=== PATIENT | female | born 1990 | race Caucasian/White ===

== ENCOUNTER → 2018-02-02 | Outpatient (CLI) | payer BC ==
[~2018-02-02] MED LIST: CEFD300C3 PO; CLON1TAB27 PO
--- NOTE | 2018-02-02 19:48 | Diagnostic Imaging Report ---
INDICATION: Lower extremity swelling. COMPARISON: None. EXAMINATION: Focused ultrasound examination. FINDINGS: The soft tissues of the anterior foot demonstrate no acute abnormality. There is no fluid collection or mass. IMPRESSION: Negative limited ultrasound of the left foot. Dictated by: Dictated on workstation # [id number]
== END ==
LOC: RAD 18:48
PROVIDERS: ATTEND Nurse Practitioner Family
DX: M79.89 Other specified soft tissue disorders (principal)
CPT/HCPCS: 76881

== ENCOUNTER 2018-02-08 16:18 | Emergency (ER) | payer BC ==
[~2018-02-08] VITALS: Ht 167.6 cm; Wt 127.0 kg
[~2018-02-08 16:18] MED LIST changes: -CEFD300C3 PO
[2018-02-08 16:40] VITALS: BP 145/88
--- OUTSIDE RECORDS SUMMARY | 2018-02-08 16:49 | XMS REPORT ---
Author Author COLLINSSHARAD Cross Organization [facility] Address [address] [place] [address] Care Team Providers Care Process Control Operator Name Role Phone SHARAD COLLINS Unavailable PROBLEMS Unknown Problems ALLERGIES Substance Reaction Event Type Date Status Codeine ANGER Drug Allergy Jul, Active Depo-provera Contraceptive 150 Mg/ml Suspension Did not like it. Non Drug Allergy Jul, Active ENCOUNTERS Encounter Location Date Diagnosis [facility] [id number] [place] [address] 77165- 9094 Jul, Cough R05 ; URI, acute J06.9 and Nausea R11.0 [facility] [id number] [place] [address] 96299- 8677 Jun, Gastroenteritis K52.9 [facility] [address] [id number] Apr, Dental examination Z01.20 [facility] [address] [id number] Mar, Dental examination Z01.20 [facility] [address] [place] [address] 21594- 1524 May, [facility] [id number] [place] [address] 12691- 1113 Oct, [facility] [id number] [place] [address] 79066- 7534 Oct, [facility] [id number] [place] [address] 50498- 7972 Sep, [facility] [address] [place] [address] 24959- 0460 Sep, [facility] [id number] [place] [address] 4718 Apr, [facility] [address] [id number] [place] [address] 3807 Apr, [facility] [address] [id number] [place] [address] 2542 Apr, [facility] [address] [id number] [place] [address]- 7775 Apr, [facility] [address] [id number] [place] [address]- 9612 Apr, [facility] [address] [id number] [place] [address]- 2533 Apr, [facility] [address] [id number] [place] [address]- 8769 Mar, [facility] [address] [id number] [place] [address]- 1172 Mar, [facility] [address] [id number] [place] [address]- 2699 Feb, [facility] [address] [id number] [place] [address]- 6432 Oct, [facility] [address] [id number] [place] [address]- 2465 Oct, [facility] [address] [id number] [place] [address]- 4123 Aug, [facility] [address] [id number] [place] [address]- 1050 Jun, [facility] [address] [id number] [place] [address]- 1103 Jun, [facility] [address] [id number] [place] 12[address] Jun, [facility] [address] [id number] [place] [address]- 5359 Jun, [facility] [place] [facility] [address] [id number] [place] [address]- 7244 Jun, [facility] [place] [facility] [address] [id number] [place] [address]- 0416 Jun, [facility] [place] [facility] [address] [id number] [place] [address]- 1831 Jun, [facility] [place] [facility] [address] [id number] [place] [address]- 3971 Jun, [facility] [place] [facility] [address] [id number] [place] [address]- 5806 Jun, [facility] [place] [facility] [address] [id number] [place] [address]- 6515 Jun, [facility] [place] [facility] [address] [id number] [place] [address]- 4926 Jun, [facility] [place] [facility] [address] [id number] [place] [address]- 8472 Jun, [facility] [place] [facility] [address] [id number] [place] [address]- 0785 Jun, [facility] [place] [facility] [address] [id number], [place] [address]- 7203 Jun, [facility] [place] [facility] [address] [id number], [place] [address]- 4855 Apr, [facility] [place] [facility] [address] [id number], [place] [address]- 7188 Mar, [facility] [place] [facility] [address] [id number] [place] [address]- 7370 05 Mar, 2012 [facility] [place] [facility] [address] [id number], [place] [address]- 1180 04 Mar, 2012 [facility] [place] [facility] [address] [id number], [place] [address]- 7096 Feb, [facility] [place] [facility] [address] [id number], [place] [address]- 2546 Feb, [facility] [address] [address]- 2546 Jan, [facility] [address], [place] [address]- 2546 Jan, [facility] [address], [place] [address]- 2546 November, [facility] [address], [place] [address]- 2546 November, [facility] [address] [place] [address] 91547- 2546 Oct, [facility] [id number] [address]- 2546 Sep, [facility] [address] [place] [address] 87029- 2546 Sep, [facility] [address], [place] [address]- 2546 Aug, [facility] [address], [place] [address]- 2546 Aug, [facility] [address] [address]- 2546 Aug, [facility] [address], [place] [address]- 2546 Jul, [facility] [address] [id number] [address]- 2546 Jun, [facility] [address] [id number] [address]- 2546 May, IMMUNIZATIONS No Known Immunizations SOCIAL HISTORY Never Assessed REASON FOR VISIT Congestion-tjanssenMA, -3-4 days with congestion, stuffy nose, cough, fever for the last few days. , -c/o being nausous yesterday and this AM. PLAN OF CARE Activity Details Follow Up prn Reason: VITAL SIGNS Height 66 in 2017-07-26 Weight 258.9 lbs 2017-07-26 Temperature 97.8 degrees Fahrenheit 2017-07-26 Heart Rate 80 bpm 2017-07-26 Respiratory Rate 20 2017-07-26 BMI 41.78 kg/m2 2017-07-26 Blood pressure systolic 132 mmHg 2017-07-26 Blood pressure diastolic 78 mmHg 2017-07-26 MEDICATIONS Medication Instructions Dosage Frequency Start Date End Date Duration Status Alprazolam Not-Taking Suboxone 12-3 MG 1 Film by Sublingual route 2 times per day Mar, Active Topamax 25 mg 2 tablet by Oral route 2 times per day for 30 day(s) Jul, Active Venlafaxine HCl Active Neurontin 300 mg 1 capsule by Oral route 3 times per day Apr, Not-Taking Prozac 20 mg 1 Tablet by Oral route 1 time per day Mar, Not-Taking Gabapentin Active Ondansetron 4 MG Orally every 8 hrs 1 tablet on the tongue and allow to dissolve 8h Jul, 05 days Active Omeprazole Not-Taking BusPIRone HCl Not-Taking ProAir HFA 108 (90 Base) MCG/ACT Inhalation every 6 hrs if needed 2 puffs as needed Jul, 10 days Active Atenolol by Oral route Jul, Not-Taking Topiramate 25 mg 1 po tid Mar, Not-Taking RESULTS Name Result Date Reference Range INFLUENZA A & B (IN HOUSE) 2017-07-26 INFLUENZA A Negative INFLUENZA B Negative Control + Lot # [id number] Exp date 11/2019 PROCEDURES Procedure Date Ordered Result Body Site INFLUENZA ASSAY W/OPTIC Jul 26, 2017 INSTRUCTIONS MEDICATIONS ADMINISTERED No Known Medications MEDICAL (GENERAL) HISTORY Type Description Date Medical History Drug over dose, attempted suicide in 2011 Medical History high blood pressure Hospitalization History ICU for drug overdose 2012 Hospitalization History [facility] hospital after drug overdose 2012
--- OUTSIDE RECORDS SUMMARY | 2018-02-08 16:50 | XMS REPORT ---
Author Author ELSIFRANCISCO BUSTAMANTE [facility] Address Unknown Care Team Providers Care Metalsmith Name Role Phone FRANCISCO SHETTY Unavailable PROBLEMS Unknown Problems ALLERGIES Substance Reaction Event Type Date Status Codeine ANGER Drug Allergy Mar, Active Depo-provera Contraceptive 150 Mg/ml Suspension Did not like it. Non Drug Allergy Mar, Active ENCOUNTERS Encounter Location Date Diagnosis [facility] [address] [address]- [address] Jul, Cough R05 ; URI, acute J06.9 and Nausea R11.0 [facility] [address] [address]1002- 9564 Jun, Gastroenteritis K52.9 [facility] [address] [id number] Apr, Dental examination Z01.20 [facility] [address] [id number] Mar, Dental examination Z01.20 [facility] [id number] [place] [address] 74045- 1650 May, [facility] [id number] [place] [address] 48479- 2831 Oct, [facility] [address] 64217- 3107 Oct, [facility] [address] 33191- 4812 Sep, [facility] [address] 71884- 6288 Sep, [facility] [address] 94722- 0824 17 Apr, 2013 [facility] [place] [facility] [address] [id number] [place] [address]- 8748 17 Apr, 2013 [facility] [place] [facility] [address] [id number] [place] [address]- 3796 Apr, [facility] [place] [facility] [address] [id number] [place] [address]- 5381 Apr, [facility] [place] [facility] [address] [id number] [place] [address]- 0720 Apr, [facility] [place] [facility] [address] [id number] [place] [address]- 3961 Apr, [facility] [place] [facility] [address] [id number] [place] [address]- 9114 Mar, [facility] [place] [facility] [address] [id number] [place] [address]- 9523 Mar, [facility] [place] [facility] [address] [id number] [address]- 0766 Feb, [facility] [place] [facility] [address] [id number] [place] [address]- 7088 Oct, [facility] [place] [facility] [address] [id number] [place] [address]- 0306 Oct, [facility] [place] [facility] [address] [id number][place] [address]- 3130 Aug, [facility] [place] [facility] [address] [id number][place] [address]- 7033 Jun, [facility] [place] [facility] [address] [id number] [place] [address]- 0140 Jun, [facility] [place] [facility] [address] [id number] [place] [address]- 3897 Jun, [facility] [place] [facility] [address] [id number] [address]- 3068 Jun, [facility] [place] [facility] [address] [id number] [place] [address]- 5887 13 Jun, 2012 [facility] [address] [id number] [place] [address]- 4183 13 Jun, 2012 [facility] [address] [id number] [place] [address]- 0686 Jun, [facility] [address] [id number] [place] [address]- 0493 Jun, [facility] [address] [id number] [place] [address]- 5789 Jun, [facility] [address] [id number] [place] [address]- 0982 Jun, [facility] [address] [id number] [place] [address]- 7965 Jun, [facility] [address] [id number] [place] [address]- 3462 Jun, [facility] [address] [id number] [place] [address]- 2434 Jun, [facility] [address] [id number] [place] [address]- 5926 Jun, [facility] [address] [facility] [id number] [place] [address]- 4715 Apr, [facility] [place] [facility] [address] [id number] [place] [address]- 3128 22 Mar, 2012 [facility] [address] [id number] [place] [address]- 5575 05 Mar, 2012 [facility] [place] [facility] [address] [id number] [place] [address]- 7173 04 Mar, 2012 [facility] [place] [facility] [address] [id number] [place] [address]- 9967 24 Feb, 2012 [facility] [place] [facility] [address] [id number] [place] [address]- 9803 Feb, [facility] [address] [id number] [address]- 4886 Jan, [facility] [address] [address]- 2546 Jan, [facility] [address] [id number] [address]- 5556 November, [facility] [address] [address]- 2546 November, [facility] [address] [address]- 2486 Oct, [facility] [address] [place] [address] 43205- 5126 Sep, [facility] [id number] [place] [address] 65051- 0866 Sep, [facility] [address] [place] [address] 97328- 1716 Aug, [facility] [address] [address]- 4926 Aug, [facility] [address] [address]- 9966 Aug, [facility] [address], [place] [address]- 9136 Jul, [facility] [address] [address]- 2546 Jun, [facility] [address] [id number] [address]- 3346 May, IMMUNIZATIONS No Known Immunizations SOCIAL HISTORY Never Assessed REASON FOR VISIT NICOLLE-WALK IN PLAN OF CARE Activity Details Follow Up prn Reason:Filling #30, OB VITAL SIGNS Height 66 in 2017-04-12 Blood pressure systolic 117 mmHg 2017-04-12 Blood pressure diastolic 76 mmHg 2017-04-12 MEDICATIONS Medication Instructions Dosage Frequency Start Date End Date Duration Status Omeprazole Active Alprazolam Active Venlafaxine HCl Active Suboxone 12-3 MG 1 Film by Sublingual route 2 times per day Mar, Active Gabapentin Active Topamax 25 mg 2 tablet by Oral route 2 times per day for 30 day(s) Jul, Active BusPIRone HCl Active RESULTS No Results PROCEDURES Procedure Date Ordered Result Body Site LTD ORAL EVALUATION - PROBLEM FOCUS Apr 12, 2017 INTRAORL-PERIAPICAL 1 FILM [id number] Apr 12, 2017 BITEWING - SINGLE FILM Apr 12, 2017 INSTRUCTIONS MEDICATIONS ADMINISTERED No Known Medications MEDICAL (GENERAL) HISTORY Type Description Date Medical History Drug over dose, attempted suicide in 2011 Medical History high blood pressure Hospitalization History ICU for drug overdose 2012 Hospitalization History Psychiatric hospital after drug overdose 2012
--- OUTSIDE RECORDS SUMMARY | 2018-02-08 16:50 | XMS REPORT ---
Author Author FLORA VERDUGO Organization [facility] Address [address] [place] [address] Care Team Providers Care Tree Specialist Name Role Phone FLORA VERDUGO Unavailable PROBLEMS Unknown Problems ALLERGIES Substance Reaction Event Type Date Status Codeine ANGER Drug Allergy Jun, Active Depo-provera Contraceptive 150 Mg/ml Suspension Did not like it. Non Drug Allergy Jun, Active ENCOUNTERS Encounter Location Date Diagnosis [facility] [id number] [place] [address] 81788- 1802 Jul, Cough R05 ; URI, acute J06.9 and Nausea R11.0 [facility] [id number] [place] [address] 05385- 6588 Jun, Gastroenteritis K52.9 [facility] [address] [id number] Apr, Dental examination Z01.20 [facility] [address] [id number] Mar, Dental examination Z01.20 [facility] [id number] [place] [address] 48527- 0183 May, [facility] [id number] [place] [address] 16621- 6632 Oct, [facility] [id number] [place] [address] 78609- 2764 Oct, [facility] [id number] [place] [address] 49405- 8377 Sep, [facility] [id number] [place] [address] 02741- 6817 Sep, [facility] [address] [id number] [place] [address]- 7031 Apr, [facility] [address] [id number] [place] [address]- 0802 Apr, [facility] [address] [id number] [place] [address] 2548 Apr, [facility] [address] [id number] [place] [address]- 7268 Apr, [facility] [address] [id number] [place] [address]- 8980 Apr, [facility] [address] [id number] [place] [address]- 0949 Apr, [facility] [address] [id number] [place] [address]- 6096 Mar, [facility] [address] [id number] [place] [address]- 6980 Mar, [facility] [address] [id number] [place] [address]- 0090 Feb, [facility] [address] [id number] [place] [address]- 1059 Oct, [facility] [address] [id number] [place] [address]- 8192 Oct, [facility] [address] [id number] [place] [address]- 1448 Aug, [facility] [address] [id number] [place] [address]- 7899 Jun, [facility] [address] [id number] [place] [address]- 9428 Jun, [facility] [address] [id number] [place] 8705 Jun, [facility] [address] [id number] [place] [address]- 5904 Jun, [facility] [place] [facility] [address] [id number] [place] [address]- 3595 Jun, [facility] [place] [facility] [address] [id number] [place] [address]- 2446 Jun, [facility] [place] [facility] [address] [id number] [place] [address]- 7494 Jun, [facility] [place] [facility] [address] [id number] [place] [address]- 9454 Jun, [facility] [place] [facility] [address] [id number] [place] [address]- 2610 Jun, [facility] [place] [facility] [address] [id number] [place] [address]- 0257 Jun, [facility] [place] [facility] [address] [id number] [place] [address]- 7081 Jun, [facility] [place] [facility] [address] [id number] [place] [address]- 0228 Jun, [facility] [place] [facility] [address] [id number] [place] [address]- 8708 Jun, [facility] [place] [facility] [address] [id number], [place] [address]- 1337 Jun, [facility] [place] [facility] [address] [id number], [place] [address]- 0328 Apr, [facility] [place] [facility] [address] [id number], [place] [address]- 5688 Mar, [facility] [place] [facility] [address] [id number] [place] [address]- 7321 05 Mar, 2012 [facility] [place] [facility] [address] [id number], [place] [address]- 6358 04 Mar, 2012 [facility] [place] [facility] [address] [id number], [place] [address]- 8930 Feb, [facility] [place] [facility] [address] [id number], [place] [address] 2546 Feb, [facility] [address], [place] [address]- 6806 Jan, [facility] [address], [place] [address]- 2546 Jan, [facility] [address], [place] [address]- 2546 November, [facility] [address] [id number], [place] [address]- 2546 November, [facility] [id number] [place] [address] 65927- 4016 Oct, [facility] [address] [id number], [place] [address]- 2546 Sep, [facility] [id number] [place] [address] 16813- 6676 Sep, [facility] [address], [place] [address]- 9166 Aug, [facility] [address], [place] [address]- 5806 Aug, [facility] [id number] [address] Aug, [facility] [id number] [address] Jul, [facility] [id number] [address] Jun, [facility] [id number] [address] May, IMMUNIZATIONS No Known Immunizations SOCIAL HISTORY Never Assessed REASON FOR VISIT Vomiting / dizziness--Ye Moyer MA PLAN OF CARE Activity Details Follow Up prn Reason: VITAL SIGNS Height 66 in 2017-06-25 Weight 261.6 lbs 2017-06-25 Temperature 97.9 degrees Fahrenheit 2017-06-25 Heart Rate 76 bpm 2017-06-25 Respiratory Rate 20 2017-06-25 BMI 42.22 kg/m2 2017-06-25 Blood pressure systolic 118 mmHg 2017-06-25 Blood pressure diastolic 76 mmHg 2017-06-25 MEDICATIONS Medication Instructions Dosage Frequency Start Date End Date Duration Status Gabapentin Active Suboxone 12-3 MG 1 Film by Sublingual route 2 times per day Mar, Active Venlafaxine HCl Active Topiramate 25 mg 1 po tid Mar, Not-Taking Topamax 25 mg 2 tablet by Oral route 2 times per day for 30 day(s) Jul, Active Omeprazole Not-Taking Atenolol by Oral route Jul, Not-Taking Neurontin 300 mg 1 capsule by Oral route 3 times per day Apr, Not-Taking Alprazolam Not-Taking Prozac 20 mg 1 Tablet by Oral route 1 time per day Mar, Not-Taking BusPIRone HCl Not-Taking RESULTS No Results PROCEDURES No Known procedures INSTRUCTIONS MEDICATIONS ADMINISTERED No Known Medications MEDICAL (GENERAL) HISTORY Type Description Date Medical History Drug over dose, attempted suicide in 2011 Medical History high blood pressure Hospitalization History ICU for drug overdose 2012 [facility]
[2018-02-08 16:52] LABS: BILIRUBIN,URINE NEGATIVE (NEGATIVE); CLARITY,URINE CLEAR; COLOR,URINE YELLOW; GLUCOSE, URINE (UA) NEGATIVE (NEGATIVE); KETONES,URINE NEGATIVE (NEGATIVE); LEUKOCYTE ESTERASE ,URINE NEGATIVE (NEGATIVE); NITRITE,URINE NEGATIVE (NEGATIVE); PH,URINE 5 (5-9); PROTEIN,URINE NEGATIVE (NEGATIVE); UROBILINOGEN,URINE 1 MG/DL (NORMAL)
[2018-02-08] MEDS ORDERED: KETOROLAC 30 MG/ML VIAL IVP ONE (17:00)
[2018-02-08] MEDS ORDERED: NS IV 1000 ML 1,000 ML IV SCH (17:00)
--- NOTE | 2018-02-08 17:00 | ED Lower Extremity ---
General Chief Complaint: Lower Extremity Stated Complaint: L FOOT/LEG REDNESS/SWELLING Source: patient Exam Limitations: no limitations History of Present Illness Date Seen by Provider: Feb 08, 2018 Time Seen by Provider: 16:54 Initial Comments to ER with redness and swelling of the left lower extremity. This began 5 days ago with only swelling to the dorsal aspect of the left foot. No wounds that she noticed and no cause that she can identify. She denies fevers or chills. She saw [facility] a few days ago and had a soft tissue ultrasound done which identified no abnormality. According to the records this does not appear as though it was a venous ultrasound. She then saw her primary care provider Dr. KINSEY who prescribed her Bactrim 3 days ago. She started that yesterday and so today is her second day of Bactrim. She denies any improvement. The swelling has progressed up the leg to about the knee now and she has developed some redness over the lateral aspect of the lower leg that began last night. She is on Suboxone for drug use and has been on this for 4 years, denies any recent IV drug use. She was also started on clonazepam 3 days ago at her appointment with Dr. KINSEY. Onset: just prior to arrival, last week Severity: moderate Pain/Injury Location: left leg Modifying Factors: Worse With Movement Allergies and Home Medications Allergies Coded Allergies: Codeine (Unverified Allergy, Unknown, 03/19/11) Home Medications Cefdinir 300 Mg Capsule, 300 MG PO BID Prescribed by: ANTONIETA GEE on 02/09/18 1724 Clonazepam 1 Mg Tab.rapdis, 1 TAB PO PRN, (Reported) Patient Home Medication List Home Medication List Reviewed: Yes Constitutional: see HPI; No chills, No fever EENTM: see HPI Respiratory: no symptoms reported Cardiovascular: no symptoms reported Genitourinary: no symptoms reported Musculoskeletal: see HPI Skin: see HPI Psychiatric/Neurological: No Symptoms Reported Past Yglzdob-Jmdnfq-Ewxqgl Hx Patient Social History Recent Foreign Travel: No Contact w/Someone Who Travel: No Past Medical History Reproductive Disorders: No Physical Exam Vital Signs Capillary Refill : Height, Weight, BMI Height: '" Weight: lbs. oz. kg; BMI Method: General Appearance: WD/WN, no apparent distress, other (appears rather sedate but answers all questions appropriately, pleasant and appreciative. Her blood pressure is fine at 145/88 which she is tachycardic at about 120. She is afebrile. Quite a bit of swelling to the left lower extremity distal to the knee with some erythema with lateral malleolus. She has brisk capillary refill of the toes, normal sensation of the toes. She states that it does feel a little tight with plantar flexion of the foot.) Neck: non-tender, full range of motion Cardiovascular: no murmur, tachycardia Respiratory: normal breath sounds, no respiratory distress, no accessory muscle use Gastrointestinal: normal bowel sounds, non tender, soft Hips: bilateral hip non-tender, bilateral hip normal inspection, bilateral hip normal range of motion Legs: right leg non-tender, right leg normal inspection, right leg normal range of motion; left leg pain, left leg soft tissue tenderness, left leg swelling, left leg other (erythema over the lateral malleolus) Knees: bilateral knee non-tender (knees are both normal upon inspection and palpation), bilateral knee normal inspection, bilateral knee normal range of motion Ankles: bilateral ankle non-tender, bilateral ankle normal inspection, bilateral ankle normal range of motion Feet: bilateral foot non-tender, bilateral foot normal inspection, bilateral foot normal range of motion Neurologic/Psychiatric: alert, normal mood/affect, oriented x 3 Skin: normal color, warm/dry Progress/Results/Core Measures Results/Orders Lab Results Laboratory Tests Test 02/08/18 16:45 02/08/18 16:50 Range/Units Urine Color YELLOW Urine Clarity CLEAR Urine pH 5 5-9 Urine Specific Gypsy 1.015 L 1.016-1.022 Urine Protein NEGATIVE NEGATIVE Urine Glucose (UA) NEGATIVE NEGATIVE Urine Ketones NEGATIVE NEGATIVE Urine Nitrite NEGATIVE NEGATIVE Urine Bilirubin NEGATIVE NEGATIVE Urine Urobilinogen 1 NORMAL MG/DL Urine Leukocyte Esterase NEGATIVE NEGATIVE Urine RBC (Auto) NEGATIVE NEGATIVE Urine RBC NONE /HPF Urine WBC NONE /HPF Urine Squamous Epithelial Cells NONE /HPF Urine Crystals NONE /LPF Urine Bacteria NEGATIVE /HPF Urine Casts NONE /LPF Urine Mucus NEGATIVE /LPF Urine Culture Indicated NO Urine Opiates Screen NEGATIVE NEGATIVE Urine Oxycodone Screen NEGATIVE NEGATIVE Urine Methadone Screen NEGATIVE NEGATIVE Urine Propoxyphene Screen NEGATIVE NEGATIVE Urine Barbiturates Screen NEGATIVE NEGATIVE Ur Tricyclic Antidepressants Screen NEGATIVE NEGATIVE Urine Phencyclidine Screen NEGATIVE NEGATIVE Urine Amphetamines Screen NEGATIVE NEGATIVE Urine Methamphetamines Screen NEGATIVE NEGATIVE Urine Benzodiazepines Screen POSITIVE H NEGATIVE Urine Cocaine Screen NEGATIVE NEGATIVE Urine Cannabinoids Screen NEGATIVE NEGATIVE White Blood Count 9.4 4.3-11.0 10^3/uL Red Blood Count 4.13 L 4.35-5.85 10^6/uL Hemoglobin 12.7 11.5-16.0 G/DL Hematocrit 37 35-52 % Mean Corpuscular Volume 89 80-99 FL Mean Corpuscular Hemoglobin 31 25-34 PG Mean Corpuscular Hemoglobin Concent 35 32-36 G/DL Red Cell Distribution Width 12.4 10.0-14.5 % Platelet Count 267 130-400 10^3/uL Mean Platelet Volume 10.3 7.4-10.4 FL Neutrophils (%) (Auto) 57 42-75 % Lymphocytes (%) (Auto) 34 12-44 % Monocytes (%) (Auto) 7 0-12 % Eosinophils (%) (Auto) 2 0-10 % Basophils (%) (Auto) 0 0-10 % Neutrophils # (Auto) 5.4 1.8-7.8 X 10^3 Lymphocytes # (Auto) 3.2 1.0-4.0 X 10^3 Monocytes # (Auto) 0.6 0.0-1.0 X 10^3 Eosinophils # (Auto) 0.2 0.0-0.3 10^3/uL Basophils # (Auto) 0.0 0.0-0.1 10^3/uL Erythrocyte Sedimentation Rate 14 0-20 MM/HR D-Dimer 0.26 0.00-0.49 UG/ML Sodium Level 139 135-145 MMOL/L Potassium Level 3.7 3.6-5.0 MMOL/L Chloride Level 105 98-107 MMOL/L Carbon Dioxide Level 23 21-32 MMOL/L Anion Gap 11 5-14 MMOL/L Blood Urea Nitrogen 8 7-18 MG/DL Creatinine 0.85 0.60-1.30 MG/DL Estimat Glomerular Filtration Rate > 60 BUN/Creatinine Ratio 9 Glucose Level 192 H 70-105 MG/DL Lactic Acid Level 1.63 0.50-2.00 MMOL/L Calcium Level 9.7 8.5-10.1 MG/DL Total Bilirubin 0.6 0.1-1.0 MG/DL Aspartate Amino Transf (AST/SGOT) 16 5-34 U/L Alanine Aminotransferase (ALT/SGPT) 15 0-55 U/L Alkaline Phosphatase 85 40-136 U/L C-Reactive Protein High Sensitivity 0.51 H 0.00-0.50 MG/DL Total Protein 5.9 L 6.4-8.2 GM/DL Albumin 4.4 3.2-4.5 GM/DL Micro Results Microbiology 02/08/18 Blood Culture - Final, Complete No growth 02/08/18 Blood Culture - Final, Complete No growth My Orders Orders - ANTONIETA GEE APRN Us Venous Lower Ext Lt (02/08/18 16:37) Cbc With Automated Diff (02/08/18 16:37) Comprehensive Metabolic Panel (02/08/18 16:37) Ua Culture If Indicated (02/08/18 16:37) Urine Bedside (02/08/18 16:37) Drug Screen Stat (Urine) (02/08/18 16:37) Iv Heplock-Insert (Order) (02/08/18 16:37) Foot, Left, 3 Views (02/08/18 16:37) Tibia/Fibula, Left, 2 Views (02/08/18 16:37) Hs C Reactive Protein (02/08/18 16:42) Erythrocyte Sedimentation Rate (02/08/18 16:42) Blood Culture (02/08/18 16:53) Lactic Acid Analyzer (02/08/18 16:53) Ketorolac Injection (Toradol Injection) (02/08/18 17:00) Ns Iv 1000 Ml (Sodium Chloride 0.9%) (02/08/18 17:00) Medications Given in ED Vital Signs/I&O Urine -Bedside: Negative Diagnostic Imaging Diagonstic Imaging: Xray Comments NAME: ITZEL MATA [facility] REC#: [id number] PT STATUS: REG ER : 1990 PHYSICIAN: ANTONIETA GEE APRN ADMIT DATE: 02/08/18/ER Signed Date of Exam:02/08/18 FOOT, LEFT, 3 VIEWS INDICATION: Left foot injury, pain. COMPARISON: None. EXAMINATION: Three views of the left foot were obtained. FINDINGS: No fracture or dislocation. Articular surfaces are normal. There is no bony erosion. No foreign body. IMPRESSION: No fracture or dislocation. Dictated by: Dictated on workstation # [id number] Dict: 02/08/18 1714 Trans: 02/08/18 172 PJE [id number] Interpreted by: CHINMAY ALEMAN Electronically signed by: CHINMAY ALEMAN 02/08/181725 NAME: ITZEL MATA [facility] REC#: [id number] PT STATUS: REG ER : 1990 PHYSICIAN: ANTONIETA GEE APRN ADMIT DATE: 02/08/18/ER Signed Date of Exam:02/08/18 TIBIA/FIBULA, LEFT, 2 VIEWS INDICATION: Left leg injury, pain. COMPARISON: None. EXAMINATION: Three views of the left tibia and fibula were obtained. FINDINGS: No fracture or dislocation. Articular surfaces are normal. No foreign body. IMPRESSION: Negative left tibia and fibula. Dictated by: Dictated on workstation # [id number] Dict: 02/08/18 1715 Trans: 02/08/181725 PJE [id number] Interpreted by: CHINMAY ALEMAN Electronically signed by: CHINMAY ALEMAN 02/08/181725 NAME: ITZEL MATA [facility] REC#: [id number] PT STATUS: REG ER : 1990 PHYSICIAN: ANTONIETA GEE APRN ADMIT DATE: 02/08/18/ER Draft Date of Exam:02/08/18 US VENOUS LOWER EXT LT PROCEDURE: US left lower extremity venous. TECHNIQUE: Multiple real-time grayscale images were obtained over the left lower extremity in various projections. Additional duplex Doppler and color Doppler images were also obtained. INDICATION: Left lower extremity swelling and pain. COMPARISON: None. FINDINGS: Visualized deep and superficial venous system is patent. There is no mass or DVT. IMPRESSION: Negative left lower extremity venous Doppler. Dictated on workstation # [id number] Dict: 02/08/18 1844 Trans: 02/08/18 1851 [id number] Interpreted by: CHINMAY ALEMAN Electronically signed by: Departure Communication (Admissions) Time/Spoke to Admitting Phy: 18:43 1836-venous ultrasound lower extremity negative for DVT. She is without question oversedated on her Suboxone and lorazepam. she has fallen asleep holding her cell phone playing a movie while sitting upright in bed, head extended back, snoring and ignoring her ringing cell phone. She does arouse to loud verbal stimuli. I will hold the clonazepam that was just started 2 days ago and put her on continuous pulse oximetry for tonight. I discussed with Dr. Massey. We will add a d-dimer, treat empirically for cellulitis with Rocephin. Impression Primary Impression: Cellulitis of left lower leg Disposition: AGAINST MEDICAL ADVICE Condition: Against Medical Advice Admissions Decision to Admit Reason: Admit from ER (General) Decision to Admit/Date: Feb 08, 2018 Time/Decision to Admit Time: 17:01 Departure-Patient Inst. Referrals: BEAR KINSEY DO (PCP/Family) Primary Care Physician Images Extremities-Lower 1 - Cellulitis, Swelling, Tenderness Copy Copies To 1: BEAR KINSEY PETER J APRN Feb 08, 2018 17:00
[2018-02-08 17:04] LABS: AMPHETAMINE SCREEN, URINE NEGATIVE (NEGATIVE); BARBITURATE SCREEN URINE NEGATIVE (NEGATIVE); BENZODIAZEPINES SCREEN URINE POSITIVE (NEGATIVE); CANNABINOID SCREEN, URINE NEGATIVE (NEGATIVE); COCAINE SCREEN URINE NEGATIVE (NEGATIVE); METHADONE STAT NEGATIVE (NEGATIVE); METHAMPHETAMINE SCREEN URINE S NEGATIVE (NEGATIVE); OPIATE SCREEN URINE NEGATIVE (NEGATIVE); OXYCODONE STAT NEGATIVE (NEGATIVE); PROPOXYPHENE STAT NEGATIVE (NEGATIVE); TRICYCLIC ANTIDEPRESSANTS SCRE NEGATIVE (NEGATIVE)
[2018-02-08 17:06] LABS: BASOPHILS % (AUTO) 0 % (0-10); EOSINOPHILS # (AUTO) 0.2 10^3/uL (0.0-0.3); EOSINOPHILS % (AUTO) 2 % (0-10); HEMATOCRIT 37 % (35-52); HEMOGLOBIN 12.7 G/DL (11.5-16.0); LYMPHOCYTES # (AUTO) 3.2 X 10^3 (1.0-4.0); LYMPHOCYTES % (AUTO) 34 % (12-44); MEAN CORPUSCULAR HEMOGLOBIN 31 PG (25-34); MEAN CORPUSCULAR HGB CONC 35 G/DL (32-36); MEAN CORPUSCULAR VOLUME 89 FL (80-99); MEAN PLATELET VOLUME 10.3 FL (7.4-10.4); MONOCYTES # (AUTO) 0.6 X 10^3 (0.0-1.0); MONOCYTES % (AUTO) 7 % (0-12); NEUTROPHILS # (AUTO) 5.4 X 10^3 (1.8-7.8); NEUTROPHILS % (AUTO) 57 % (42-75); PLATELET COUNT 267 10^3/uL (130-400); RED BLOOD COUNT 4.13 10^6/uL (4.35-5.85); RED CELL DISTRIBUTION WIDTH 12.4 % (10.0-14.5); WHITE BLOOD COUNT 9.4 10^3/uL (4.3-11.0)
[2018-02-08 17:06] LABS: BACTERIA,URINE NEGATIVE /HPF
[2018-02-08 17:20] LABS: ALANINE AMINOTRANSFERASE 15 U/L (0-55); ALBUMIN 4.4 GM/DL (3.2-4.5); ALKALINE PHOSPHATASE 85 U/L (40-136); BILIRUBIN,TOTAL 0.6 MG/DL (0.1-1.0); BUN/CREATININE RATIO 9; CALCIUM 9.7 MG/DL (8.5-10.1); CARBON DIOXIDE 23 MMOL/L (21-32); CHLORIDE 105 MMOL/L (98-107); CREATININE SERUM 0.85 MG/DL (0.60-1.30); GFR ESTIMATED > 60; GLUCOSE 192 MG/DL (70-105); POTASSIUM 3.7 MMOL/L (3.6-5.0); SODIUM 139 MMOL/L (135-145); TOTAL PROTEIN 5.9 GM/DL (6.4-8.2)
--- NOTE | 2018-02-08 17:21 | Diagnostic Imaging Report ---
INDICATION: Left foot injury, pain. COMPARISON: None. EXAMINATION: Three views of the left foot were obtained. FINDINGS: No fracture or dislocation. Articular surfaces are normal. There is no bony erosion. No foreign body. IMPRESSION: No fracture or dislocation. Dictated by: Dictated on workstation # [id number]
--- NOTE | 2018-02-08 17:22 | Diagnostic Imaging Report ---
INDICATION: Left leg injury, pain. COMPARISON: None. EXAMINATION: Three views of the left tibia and fibula were obtained. FINDINGS: No fracture or dislocation. Articular surfaces are normal. No foreign body. IMPRESSION: Negative left tibia and fibula. Dictated by: Dictated on workstation # [id number]
[2018-02-08 18:08] LABS: ERYTHROCYTE SEDIMENTATION RATE 14 MM/HR (0-20)
--- NOTE | 2018-02-08 18:52 | Diagnostic Imaging Report ---
PROCEDURE: US left lower extremity venous. TECHNIQUE: Multiple real-time grayscale images were obtained over the left lower extremity in various projections. Additional duplex Doppler and color Doppler images were also obtained. INDICATION: Left lower extremity swelling and pain. COMPARISON: None. FINDINGS: Visualized deep and superficial venous system is patent. There is no mass or DVT. IMPRESSION: Negative left lower extremity venous Doppler. Dictated by: Dictated on workstation # [id number]
[2018-02-09] MEDS ORDERED: CEFD300C3 PO (17:24)
== END 2018-02-08 19:40 | disposition other institution (70) ==
LOC: EDUNIT# 16:18 → ER 16:19 → UNDOADMOB 18:41 → 4TH 18:41 → ER 19:32 → 4TH 20:26 → UNDODISOB 20:30
DX: L03.116 Cellulitis of left lower limb (principal); Z88.5 Allergy status to narcotic agent
CPT/HCPCS: 36415; 73590; 73630; 80053; 80306; 81000; 83605; 84703; 85025; 85379; 85652; 86141; 87040; 96361; 96374; 99284

== ENCOUNTER 2018-02-09 16:24 | Emergency (ER) | payer BC ==
[~2018-02-09] VITALS: Ht 167.6 cm; Wt 113.4 kg
[2018-02-09 16:51] LABS: BASOPHILS % (AUTO) 0 % (0-10); EOSINOPHILS # (AUTO) 0.2 10^3/uL (0.0-0.3); EOSINOPHILS % (AUTO) 3 % (0-10); HEMATOCRIT 36 % (35-52); HEMOGLOBIN 12.3 G/DL (11.5-16.0); LYMPHOCYTES # (AUTO) 2.4 X 10^3 (1.0-4.0); LYMPHOCYTES % (AUTO) 32 % (12-44); MEAN CORPUSCULAR HEMOGLOBIN 30 PG (25-34); MEAN CORPUSCULAR HGB CONC 34 G/DL (32-36); MEAN CORPUSCULAR VOLUME 89 FL (80-99); MEAN PLATELET VOLUME 10.3 FL (7.4-10.4); MONOCYTES # (AUTO) 0.4 X 10^3 (0.0-1.0); MONOCYTES % (AUTO) 5 % (0-12); NEUTROPHILS # (AUTO) 4.5 X 10^3 (1.8-7.8); NEUTROPHILS % (AUTO) 60 % (42-75); PLATELET COUNT 275 10^3/uL (130-400); RED BLOOD COUNT 4.11 10^6/uL (4.35-5.85); RED CELL DISTRIBUTION WIDTH 12.7 % (10.0-14.5); WHITE BLOOD COUNT 7.5 10^3/uL (4.3-11.0)
--- NOTE | 2018-02-09 16:52 | ED Integumentary General ---
General Chief Complaint: Skin/Wound Problems Stated Complaint: L FOOT SWELLING/PAIN Source: patient Exam Limitations: no limitations History of Present Illness Date Seen by Provider: Feb 09, 2018 Time Seen by Provider: 16:48 Initial Comments to ER with left lower extremity swelling redness and pain. This began about a week ago with swelling to the dorsal aspect of the left foot without known cause. She saw primary care a few days after onset and was given Bactrim. As of yesterday she had a total of 2 doses of Bactrim. She was seen here in the emergency room with fairly unremarkable labs, negative venous ultrasound left lower extremity. She had a bit of erythema over the lateral and medial aspect of the distal tibia. She was going to be admitted for cellulitis or IV antibiotics but decided that since she couldn't smoke here she should probably go on home. She signed out AGAINST MEDICAL ADVICE. She returns today with persistent swelling redness. She is now had 3 doses of Bactrim. Still no fevers Timing/Duration: constant, week Severity: moderate Associated Symptoms: rash Allergies and Home Medications Allergies Coded Allergies: Codeine (Unverified Allergy, Unknown, 03/19/11) Home Medications Clonazepam 1 Mg Tab.rapdis, 1 TAB PO PRN, (Reported) Patient Home Medication List Home Medication List Reviewed: Yes Constitutional: see HPI; No chills EENTM: see HPI Respiratory: no symptoms reported Cardiovascular: no symptoms reported Genitourinary: no symptoms reported Musculoskeletal: see HPI Skin: see HPI Psychiatric/Neurological: No Symptoms Reported Past Utmbdlp-Iogkfx-Gxiifu Hx Patient Social History Type Used: Cigarettes 2nd Hand Smoke Exposure: Yes Recent Foreign Travel: No Contact w/Someone Who Travel: No Recent Hopitalizations: Yes Past Medical History Surgeries: No Respiratory: No Cardiac: Yes Neurological: No Reproductive Disorders: No Gastrointestinal: Yes Endocrine: No Psychosocial: Yes Blood Disorders: No Physical Exam Vital Signs Vital Signs - First Documented 02/09/18 16:47 Temp 97.9 Pulse 97 Resp 16 B/P (MAP) 167/80 (109) Pulse Ox 98 O2 Delivery Room Air Capillary Refill : General Appearance: WD/WN, no apparent distress HEENT: PERRL/EOMI, normal ENT inspection Neck: non-tender, full range of motion Respiratory: no respiratory distress, no accessory muscle use Gastrointestinal: normal bowel sounds, non tender Neurologic/Psychiatric: alert, normal mood/affect, oriented x 3 Skin: normal color, warm/dry Skin Problem Location: lower extremities (erythema to the medial and lateral aspect of the left lower extremity. No open or draining wounds. There is a bit more erythema than yesterday with there is not more swelling than yesterday. She maintains brisk capillary refill of the toes, normal sensation distally. ) Progress/Results/Core Measures Results/Orders Lab Results Laboratory Tests Test 02/09/18 16:45 Range/Units White Blood Count 7.5 4.3-11.0 10^3/uL Red Blood Count 4.11 L 4.35-5.85 10^6/uL Hemoglobin 12.3 11.5-16.0 G/DL Hematocrit 36 35-52 % Mean Corpuscular Volume 89 80-99 FL Mean Corpuscular Hemoglobin 30 25-34 PG Mean Corpuscular Hemoglobin Concent 34 32-36 G/DL Red Cell Distribution Width 12.7 10.0-14.5 % Platelet Count 275 130-400 10^3/uL Mean Platelet Volume 10.3 7.4-10.4 FL Neutrophils (%) (Auto) 60 42-75 % Lymphocytes (%) (Auto) 32 12-44 % Monocytes (%) (Auto) 5 0-12 % Eosinophils (%) (Auto) 3 0-10 % Basophils (%) (Auto) 0 0-10 % Neutrophils # (Auto) 4.5 1.8-7.8 X 10^3 Lymphocytes # (Auto) 2.4 1.0-4.0 X 10^3 Monocytes # (Auto) 0.4 0.0-1.0 X 10^3 Eosinophils # (Auto) 0.2 0.0-0.3 10^3/uL Basophils # (Auto) 0.0 0.0-0.1 10^3/uL Sodium Level 140 135-145 MMOL/L Potassium Level 4.3 3.6-5.0 MMOL/L Chloride Level 108 H 98-107 MMOL/L Carbon Dioxide Level 25 21-32 MMOL/L Anion Gap 7 5-14 MMOL/L Blood Urea Nitrogen 9 7-18 MG/DL Creatinine 1.05 0.60-1.30 MG/DL Estimat Glomerular Filtration Rate > 60 BUN/Creatinine Ratio 9 Glucose Level 129 H 70-105 MG/DL Calcium Level 9.4 8.5-10.1 MG/DL Total Bilirubin 0.6 0.1-1.0 MG/DL Aspartate Amino Transf (AST/SGOT) 17 5-34 U/L Alanine Aminotransferase (ALT/SGPT) 16 0-55 U/L Alkaline Phosphatase 73 40-136 U/L C-Reactive Protein High Sensitivity 0.69 H 0.00-0.50 MG/DL Total Protein 6.3 L 6.4-8.2 GM/DL Albumin 4.1 3.2-4.5 GM/DL My Orders Orders - ANTONIETA GEE APRN Cbc With Automated Diff (02/09/18 16:34) Comprehensive Metabolic Panel (02/09/18 16:34) Hs C Reactive Protein (02/09/18 16:34) Ceftriaxone Injection (Rocephin Injectio (02/09/18 17:00) Vital Signs/I&O 02/09/18 16:47 Temp 97.9 Pulse 97 Resp 16 B/P (MAP) 167/80 (109) Pulse Ox 98 O2 Delivery Room Air Departure Communication (Admissions) sshe was tachycardic yesterday with a rate of 122. Today she is not tachycardic with a rate in the 90s. There is no more swelling than there was yesterday. Questionable worsening of the erythema. Blood cultures from yesterday were unremarkable. We'll start an IV and draw labs Impression Primary Impression: Cellulitis of left lower extremity Disposition: HOME, SELF-CARE Condition: Stable Departure-Patient Inst. Decision time for Depature: 17:21 Referrals: BEAR KINSEY DO (PCP/Family) Primary Care Physician Patient Instructions: Cellulitis (Skin Infection), Adult (DC) Add. Discharge Instructions: 1. Call Dr. KINSEY tomorrow to make an appointment to be seen for follow- up. Continue taking the Bactrim antibiotics with your next dose being tonight. Elevate the leg as much as possible. You can add Tylenol and ibuprofen to your Suboxone. Elevating the leg will help with the swelling and the subsequent pain. Start the new antibiotic in addition to the Bactrim tomorrow. All discharge instructions reviewed with patient and/or family. Voiced understanding. Scripts Cefdinir (Cefdinir) 300 Mg Capsule 300 MG PO BID, #14 CAP Prov: ANTONIETA GEE APRN 02/09/18 ANTONIETA GEE APRN Feb 09, 2018 16:51
[2018-02-09] MEDS ORDERED: cefTRIAXone INJECTION 2,000 MG in NS (IVPB) 50 ML IV ONE (17:00)
[2018-02-09 17:10] LABS: ALANINE AMINOTRANSFERASE 16 U/L (0-55); ALBUMIN 4.1 GM/DL (3.2-4.5); ALKALINE PHOSPHATASE 73 U/L (40-136); BILIRUBIN,TOTAL 0.6 MG/DL (0.1-1.0); BUN/CREATININE RATIO 9; CALCIUM 9.4 MG/DL (8.5-10.1); CARBON DIOXIDE 25 MMOL/L (21-32); CHLORIDE 108 MMOL/L (98-107); CREATININE SERUM 1.05 MG/DL (0.60-1.30); GFR ESTIMATED > 60; GLUCOSE 129 MG/DL (70-105); POTASSIUM 4.3 MMOL/L (3.6-5.0); SODIUM 140 MMOL/L (135-145); TOTAL PROTEIN 6.3 GM/DL (6.4-8.2)
[2018-02-09] MEDS ORDERED: CEFD300C3 PO (17:24)
[2018-02-09] MEDS ORDERED: KETOROLAC 30 MG/ML VIAL IVP ONE (17:30)
[2018-02-09] MEDS ORDERED: ACETAMINOPHEN 500 MG TAB (TYLENOL) PO ONE (17:30)
[2018-02-09 17:52] VITALS: BP 167/80
== END 2018-02-09 17:53 | disposition home or self-care (01) ==
LOC: EDUNIT# 16:24 → ER 16:25
DX: L03.116 Cellulitis of left lower limb (principal); Z88.5 Allergy status to narcotic agent; Z77.22 Contact with and (suspected) exposure to environmental tobacco smoke (acute) (chronic)
CPT/HCPCS: 36415; 80053; 85025; 86141; 96374; 96375

== ENCOUNTER 2022-11-09 11:07 | Emergency (ER) | payer BC ==
[~2022-11-09] VITALS: Ht 167 cm; Wt 129.0 kg
[~2022-11-09 11:07] MED LIST changes: +CEFD300C3 PO
--- NOTE | 2022-11-09 11:49 | ED Chest Pain ---
General Chief Complaint: Cardiac/General Problems Stated Complaint: CHEST DISCOMFORT Nursing Triage Note: CHEST DISCOMFORT OFF AND ON FOR 6 MONTHS WITH DEEP BREATH. TODAY IT STARTED AGAIN AND DID NOT GO AWAY. Source: patient Exam Limitations: no limitations History of Present Illness Date Seen by Provider: Nov 09, 2022 Time Seen by Provider: 11:37 Initial Comments Patient is a 31-year-old female who presents to the emergency room with a chief complaint of anterior chest pain. Patient states she was at work today when the pain started. She states that the pain is worse with deep breath but constant. She denies any associated sweating or nausea. She does feel a little short of breath. She is a smoker. No history of hypertension. No family history of first-degree relatives with coronary artery disease at a young age. She has spoken with her primary care physician about her chest pain as it has been ongoing for about 6 months. She states she gets it daily. She has never had a cardiac evaluation. She denies fevers, chills, productive cough. No lightheadedness or dizziness. No vomiting or diarrhea recently. No sick contacts. Timing/Duration: 1-3 hours Severity/Quality: pressure, sharp Location: other (left chest) Radiation: no radiation Activities at Onset: other (work) Prior CP/Workup: other (CP x6m daily) Modifying Factors: improves with other (deep breath hurts) ASA po CLINICAL CARE LEADER: No NTG SL CLINICAL CARE LEADER: No Associated Symptoms: back pain Allergies and Home Medications Allergies Coded Allergies: Codeine (Unverified Allergy, Unknown, 03/19/11) Patient Home Medication List Home Medication List Reviewed: Yes Cefdinir (Cefdinir) 300 Mg Capsule, 300 MG PO BID Prescribed by: ANTONIETA GEE on 02/09/18 1724 Clonazepam (Clonazepam) 1 Mg Tab.rapdis, 1 TAB PO PRN, (Reported) Entered as Reported by: ANTONIETA GEE on 03/19/11 1892 Review of Systems Review of Systems Constitutional: see HPI EENTM: No Symptoms Reported Respiratory: Other (pain with deep breath) Cardiovascular: Chest Pain Gastrointestinal: No Symptoms Reported Genitourinary: No Symptoms Reported Musculoskeletal: back pain Skin: other (sweaty) Psychiatric/Neurological: Other (increased stress) Past Fehlbjn-Juzgzp-Neqdrp Hx Patient Social History Tobacco Use?: Yes Tobacco type used: Cigarettes Substance use?: No Alcohol Use?: No Immunizations Up To Date Second COVID19 Vaccination Timothy: UNKNOWN COVID19 Vaccine 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 oz. 113.652582ep; 46.00 BMI Method:Estimated General Appearance: No Apparent Distress, WD/WN, Obese HEENT: PERRL/EOMI Neck: Normal Inspection Respiratory: Chest Non Tender, Lungs Clear, No Accessory Muscle Use, No Respiratory Distress, Wheezing Cardiovascular: Regular Rate, Rhythm Gastrointestinal: Normal Bowel Sounds, Non Tender, Soft Extremity: Normal Capillary Refill, Normal Inspection, Normal Range of Motion, Non Tender, No Calf Tenderness, No Pedal Edema Neurologic/Psychiatric: Alert, Oriented x3, No Motor/Sensory Deficits, Normal Mood/Affect Skin: Normal Color, Warm/Dry Progress/Results/Core Measures Results/Orders Lab Results Laboratory Tests Test 11/09/22 11:35 Range/Units White Blood Count 7.9 4.3-11.0 10^3/uL Red Blood Count 4.90 3.80-5.11 10^6/uL Hemoglobin 14.9 11.5-16.0 g/dL Hematocrit 43 35-52 % Mean Corpuscular Volume 88 80-99 fL Mean Corpuscular Hemoglobin 30 25-34 pg Mean Corpuscular Hemoglobin Concent 35 32-36 g/dL Red Cell Distribution Width 12.4 10.0-14.5 % Platelet Count 325 130-400 10^3/uL Mean Platelet Volume 10.3 9.0-12.2 fL Immature Granulocyte % (Auto) 0 % Neutrophils (%) (Auto) 54 42-75 % Lymphocytes (%) (Auto) 39 12-44 % Monocytes (%) (Auto) 5 0-12 % Eosinophils (%) (Auto) 1 0-10 % Basophils (%) (Auto) 0 0-10 % Neutrophils # (Auto) 4.3 1.8-7.8 10^3/uL Lymphocytes # (Auto) 3.1 1.0-4.0 10^3/uL Monocytes # (Auto) 0.4 0.0-1.0 10^3/uL Eosinophils # (Auto) 0.1 0.0-0.3 10^3/uL Basophils # (Auto) 0.0 0.0-0.1 10^3/uL Immature Granulocyte # (Auto) 0.0 0.0-0.1 10^3/uL Prothrombin Time 13.6 12.2-14.7 SEC INR Comment 1.0 0.8-1.4 Activated Partial Thromboplast Time 30 24-35 SEC Sodium Level 138 135-145 MMOL/L Potassium Level 3.9 3.6-5.0 MMOL/L Chloride Level 106 98-107 MMOL/L Carbon Dioxide Level 22 21-32 MMOL/L Anion Gap 10 5-14 MMOL/L Blood Urea Nitrogen 8 7-18 MG/DL Creatinine 0.81 0.60-1.30 MG/DL Estimat Glomerular Filtration Rate 99 BUN/Creatinine Ratio 10 Glucose Level 100 70-105 MG/DL Calcium Level 9.3 8.5-10.1 MG/DL Corrected Calcium 9.1 8.5-10.1 MG/DL Magnesium Level 1.9 1.6-2.4 MG/DL Total Bilirubin 0.6 0.1-1.0 MG/DL Aspartate Amino Transf (AST/SGOT) 14 5-34 U/L Alanine Aminotransferase (ALT/SGPT) 16 0-55 U/L Alkaline Phosphatase 80 40-136 U/L Myoglobin 21.7 10.0-92.0 NG/ML Troponin I < 0.028 <0.028 NG/ML Total Protein 7.0 6.4-8.2 GM/DL Albumin 4.3 3.2-4.5 GM/DL My Orders Orders - TRE MENDOZA MD Cbc With Automated Diff (11/09/22 11:46) Magnesium (11/09/22 11:46) Chest 1 View, Ap/Pa Only (11/09/22 11:46) Ekg Tracing (11/09/22 11:46) Comprehensive Metabolic Panel (11/09/22 11:46) Myoglobin Serum (11/09/22 11:46) Protime With Inr (11/09/22 11:46) Partial Thromboplastin Time (11/09/22 11:46) O2 (11/09/22 11:46) Monitor-Rhythm Ecg Trace Only (11/09/22 11:46) Ed Iv/Invasive Line Start (11/09/22 11:46) Troponin I Gabriel (11/09/22 11:46) Aspirin Chewable Tablet (Baby Aspirin Ch (11/09/22 12:00) Albuterol Pre-Mix Nebs (Rt) (Proventil (11/09/22 12:00) Svn Small Volume Nebulizer (11/09/22 11:46) Ketorolac Injection (Toradol Injection) (11/09/22 12:30) Medications Given in ED Vital Signs/I&O 11/09/22 11/09/22 11/09/22 11:15 11:59 13:19 Temp 36.4 Pulse 71 67 Resp 16 B/P (MAP) 134/92 (106) 111/70 Pulse Ox 98 97 99 O2 Delivery Room Air Room Air Room Air Blood Pressure Mean: 106 Progress Progress Note : Time: 13:00 Progress Note Patient seen and evaluated by me. Evaluation today includes physical exam, CBC, Chem-12, troponin, magnesium, coagulation profile, EKG and chest x-ray. Pertinent physical exam findings, well-developed well-nourished female in no acute distress. Heart is regular, she has diffuse bilateral expiratory wheezing. No increased work of breathing or distress is noted. She is obese, abdomen is soft, bowel sounds are present. No lower extremity edema or tenderness in the calves. Skin is pink warm and dry. No neurologic deficits. Differential diagnosis based on history and physical exam, atypical presentation of acute coronary syndrome, pulmonary embolism, pneumonia/bronchitis, pleurisy, acid reflux/GERD, musculoskeletal chest wall pain, anxiety. Labs and imaging independently reviewed and interpreted by me. CBC is completely normal. Chemistry is completely normal as are magnesium and troponin levels. Coags normal. EKG shows no evidence of ST segment elevation IL or arrhythmia. Chest x-ray shows no infiltrate, effusion or other acute pathology. Patient is treated in the emergency room with DuoNeb breathing treatment. She has almost complete resolution of her wheezing. She feels much better after Toradol as well. Her risk factors for ACS include obesity, smoking. She is not treated for hypertension nor does she have any family history of early coronary artery disease. Based on history, physical exam and findings I believe that she is at low risk for any acute cardiac pathology. Patient is encouraged to use her inhaler on a scheduled basis as she continues to smoke. She is strongly encouraged to quit smoking. She has no concerning findings suggestive of PE, pneumonia, acute pathology of the great vessels. Return precautions provided in both verbal and written format. Patient is comfortable with plan of care. All questions are sought and answered. Initial ECG Impression Date: Nov 09, 2022 Initial ECG Impression Time: 11:37 Initial ECG Rate: 80 Initial ECG Rhythm: Normal Sinus Initial ECG Intervals: Normal Initial ECG Impression: Normal Diagnostic Imaging Diagonstic Imaging: Xray Plain Films/CT/US/NM/MRI: chest Comments [facility], [place] NAME: ITZEL MATA [facility] REC#: [id number] PT STATUS: REG ER : 1990 PHYSICIAN: TRE MENDOZA MD ADMIT DATE: 11/09/22/ER Draft Date of Exam:11/09/22 CHEST 1 VIEW, AP/PA ONLY INDICATION: Chest pain. Frontal chest obtained at 12:05 p.m. FINDINGS: Heart and mediastinal silhouette are normal in appearance. The lungs are clear. There is no pneumothorax or pleural fluid. IMPRESSION: Negative chest. Dictated on workstation # [id number] Dict: 11/09/22 1218 Trans: 11/09/22 1222 [id number] Interpreted by: DONNA REYES MD Electronically signed by: Counseling-Symptomatic: 3-10 Minutes Follow-up with PCP to: Discuss Further Options Departure Impression Primary Impression: Chest pain Qualified Codes: R07.9 - Chest pain, unspecified Additional Impression: Reactive airway disease Qualified Codes: J45.20 - Mild intermittent asthma, uncomplicated Disposition: 01 HOME, SELF-CARE Condition: Improved Departure-Patient Inst. Decision time for Depature: 13:08 Referrals: BEAR KINSEY DO (PCP/Family) Primary Care Physician Patient Instructions: Chest Pain That Is Not Caused by the Heart (DC) Add. Discharge Instructions: Continue your daily medications as prescribed. Try and remember to use your inhaler 3 times a day to help with wheezing/chest tightness. If you have worsening chest pain especially with nausea, sweating, worsening shortness of breath, pain that is radiating down your arms or up into your neck please return to the emergency department for reevaluation. Please call for a follow-up with Dr. KINSEY in a week or 2. Try and stop smoking if you can. Remember self-care to help decrease stress. Work/School Note: Work Release Form Date Seen in the Emergency Department: Nov 09, 2022 Return to Work: Nov 10, 2022 Copy Copies To 1: BEAR KINSEY KATHRYN M MD Nov 09, 2022 11:49
[2022-11-09 11:52] LABS: BASOPHILS % (AUTO) 0 % (0-10); EOSINOPHILS # (AUTO) 0.1 10^3/uL (0.0-0.3); EOSINOPHILS % (AUTO) 1 % (0-10); HEMATOCRIT 43 % (35-52); HEMOGLOBIN 14.9 g/dL (11.5-16.0); LYMPHOCYTES # (AUTO) 3.1 10^3/uL (1.0-4.0); LYMPHOCYTES % (AUTO) 39 % (12-44); MEAN CORPUSCULAR HEMOGLOBIN 30 pg (25-34); MEAN CORPUSCULAR HGB CONC 35 g/dL (32-36); MEAN CORPUSCULAR VOLUME 88 fL (80-99); MEAN PLATELET VOLUME 10.3 fL (9.0-12.2); MONOCYTES # (AUTO) 0.4 10^3/uL (0.0-1.0); MONOCYTES % (AUTO) 5 % (0-12); NEUTROPHILS # (AUTO) 4.3 10^3/uL (1.8-7.8); NEUTROPHILS % (AUTO) 54 % (42-75); PLATELET COUNT 325 10^3/uL (130-400); WHITE BLOOD COUNT 7.9 10^3/uL (4.3-11.0)
[2022-11-09 11:55] LABS: ALBUMIN 4.3 GM/DL (3.2-4.5); POTASSIUM 3.9 MMOL/L (3.6-5.0)
[2022-11-09 11:56] LABS: CALCIUM 9.3 MG/DL (8.5-10.1); PROTHROMBIN TIME PATIENT 13.6 SEC (12.2-14.7)
[2022-11-09 11:59] LABS: BILIRUBIN,TOTAL 0.6 MG/DL (0.1-1.0)
[2022-11-09] MEDS ORDERED: ASPIRIN 81 MG CHEW (CHILDREN'S ASA) PO ONE (12:00)
[2022-11-09] MEDS ORDERED: RT-ALBUTEROL SULF 2.5 MG/3 ML PRE-MIX VIAL INH ONE (12:00)
[2022-11-09 12:01] LABS: CREATININE SERUM 0.81 MG/DL (0.60-1.30)
[2022-11-09 12:04] LABS: MAGNESIUM 1.9 MG/DL (1.6-2.4)
--- NOTE | 2022-11-09 12:23 | Diagnostic Imaging Report ---
INDICATION: Chest pain. Frontal chest obtained at 12:05 p.m. FINDINGS: Heart and mediastinal silhouette are normal in appearance. The lungs are clear. There is no pneumothorax or pleural fluid. IMPRESSION: Negative chest. Dictated by: Dictated on workstation # [id number]
[2022-11-09] MEDS ORDERED: KETOROLAC 15 MG/ML VIAL IVP ONE (12:30)
[2022-11-09 13:19] VITALS: BP 111/70
== END 2022-11-09 13:19 | disposition home or self-care (01) ==
LOC: EDUNIT# 11:07 → ER 11:11
DX: J45.909 Unspecified asthma, uncomplicated (principal); R07.89 Other chest pain; E66.9 Obesity, unspecified; F17.210 Nicotine dependence, cigarettes, uncomplicated; Z68.42 Body mass index [BMI] 45.0-49.9, adult
CPT/HCPCS: 36415; 71045; 80053; 83735; 83874; 84484; 85025; 85610; 85730; 93005; 93041; 94640

== ENCOUNTER → 2023-01-20 | Outpatient (CLI) | payer BC ==
[2023-01-20 17:22] LABS: HEMATOCRIT 42 % (35-52); HEMOGLOBIN 14.4 g/dL (11.5-16.0); MEAN CORPUSCULAR HEMOGLOBIN 31 pg (25-34); MEAN CORPUSCULAR HGB CONC 34 g/dL (32-36); MEAN CORPUSCULAR VOLUME 89 fL (80-99); MEAN PLATELET VOLUME 10.3 fL (9.0-12.2); PLATELET COUNT 339 10^3/uL (130-400); WHITE BLOOD COUNT 11.2 10^3/uL (4.3-11.0)
[2023-01-20 17:51] LABS: CALCIUM 9.2 MG/DL (8.5-10.1)
[2023-01-20 17:52] LABS: TOTAL PROTEIN 6.6 GM/DL (6.4-8.2)
[2023-01-20 17:54] LABS: BILIRUBIN,TOTAL 0.4 MG/DL (0.1-1.0)
[2023-01-20 17:55] LABS: CREATININE SERUM 0.77 MG/DL (0.60-1.30)
[2023-01-20 18:18] LABS: TSH (THYROID ANALYZER) 1.59 UIU/ML (0.35-4.94)
== END ==
LOC: LAB 16:59
PROVIDERS: ATTEND Emergency Medicine
DX: I80.299 Phlebitis and thrombophlebitis of other deep vessels of unspecified lower extremity (principal); F33.1 Major depressive disorder, recurrent, moderate; F11.21 Opioid dependence, in remission; Z79.899 Other long term (current) drug therapy; F17.218 Nicotine dependence, cigarettes, with other nicotine-induced disorders
CPT/HCPCS: 36415; 80053; 80061; 82306; 83036; 84443; 85027; 85379

== ENCOUNTER 2023-01-23 08:53 | Emergency (ER) | payer BC ==
[~2023-01-23] VITALS: Ht 167 cm; Wt 124.0 kg
--- NOTE | 2023-01-23 09:32 | ED Lower Extremity ---
General Chief Complaint: Lower Extremity Stated Complaint: LT LEG PAIN, SWELLING Nursing Triage Note: PT STATES LT LOWER LEG SWELLING FOR ABOUT 3 WEEKS, WAS SEEN AT [facility] SATURDAY AND D DIMER WAS NEG, DENIES SOB, ANKLE AREA RED AND PAINFUL Source: patient Exam Limitations: no limitations History of Present Illness Date Seen by Provider: Jan 23, 2023 Time Seen by Provider: 09:19 Initial Comments Patient is a 32-year-old female who presents to the emergency room with a chief complaint of left leg swelling and discomfort. She states over the last couple of days its become more painful and more red. She has a history of hypertension, high cholesterol, she is on metformin for what sounds like insulin resistance. She is a smoker. Has implanted control. No personal history of blood clot but she believes her mother had 1 and an extremity. She denies fevers or chills. She states she has a "smoker's cough" and is no more short of breath than normal. She was seen at the family medicine clinic in in , started on Xarelto, had a D-dimer drawn and was called and told it was negative. She states she has not seen or spoken to her primary care physician. She states she was told that if her D-dimer was negative then she likely did not have a clot. She states the leg is painful to walk on. She believes she has had cellulitis before in a leg but she cannot remember which one. Severity: moderate Modifying Factors: Worse With Movement Allergies and Home Medications Allergies Coded Allergies: Codeine (Unverified Allergy, Unknown, 03/19/11) Patient Home Medication List Home Medication List Reviewed: Yes Cefdinir (Cefdinir) 300 Mg Capsule, 300 MG PO BID Prescribed by: ANTONIETA GEE on 02/09/18 1724 Cephalexin (Cephalexin) 500 Mg Tablet, 500 MG PO QID Prescribed by: TRE MENDOZA on 01/23/23 1037 Clonazepam (Clonazepam) 1 Mg Tab.rapdis, 1 TAB PO PRN, (Reported) Entered as Reported by: ANTONIETA GEE on 03/19/11 4557 Review of Systems Constitutional: see HPI EENTM: no symptoms reported Respiratory: cough ("smoker's cough") Cardiovascular: no symptoms reported Gastrointestinal: no symptoms reported Genitourinary: no symptoms reported Musculoskeletal: other (left leg swelling and redness) Skin: other (redness to left leg) Psychiatric/Neurological: Depressed, Emotional Problems Past Equoihb-Lcyxyw-Bhabih Hx Patient Social History Tobacco Use?: Yes Tobacco type used: Cigarettes Smoking Status: Current Everyday Smoker Substance use?: Yes Substance type: Marijuana Alcohol Use?: No Immunizations Up To Date Second COVID19 Vaccination Timothy: YES Past Medical History Surgery/Hospitalization HX: HTN, BORDERLINE DIABETIC, "SMOKERS COUGH," Surgeries: No Respiratory: No Cardiac: Yes Neurological: No Reproductive Disorders: No Gastrointestinal: Yes Endocrine: No Psychosocial: Yes Blood Disorders: No Physical Exam Vital Signs Vital Signs - First Documented 01/23/23 09:01 Temp 35.7 Pulse 81 Resp 20 B/P (MAP) 163/96 (118) O2 Delivery Room Air Capillary Refill : Less Than 3 Seconds Height, Weight, BMI Height: 5'6.00" Weight: 250lbs. oz. 113.708659hd; 44.00 BMI Method:Estimated General Appearance: WD/WN, no apparent distress, obese HEENT: PERRL/EOMI Neck: normal inspection Cardiovascular: regular rate, rhythm Respiratory: no respiratory distress, no accessory muscle use, wheezing ( bilateral expiratory wheezes) Gastrointestinal: soft Hips: bilateral hip normal range of motion Legs: left leg swelling, left leg other (erythema entire LLE to distal thigh; no calf tenderness; neg jenny's) Knees: left knee swelling Ankles: bilateral ankle non-tender, bilateral ankle normal inspection Feet: bilateral foot non-tender, bilateral foot normal inspection Neurologic/Tendon: normal sensation, normal motor functions Neurologic/Psychiatric: no motor/sensory deficits, alert, normal mood/affect, oriented x 3 Skin: warm/dry, other (erythema LLE) Progress/Results/Core Measures Results/Orders Lab Results Laboratory Tests Test 01/23/23 09:35 Range/Units White Blood Count 8.9 4.3-11.0 10^3/uL Red Blood Count 4.57 3.80-5.11 10^6/uL Hemoglobin 13.8 11.5-16.0 g/dL Hematocrit 42 35-52 % Mean Corpuscular Volume 91 80-99 fL Mean Corpuscular Hemoglobin 30 25-34 pg Mean Corpuscular Hemoglobin Concent 33 32-36 g/dL Red Cell Distribution Width 12.5 10.0-14.5 % Platelet Count 278 130-400 10^3/uL Mean Platelet Volume 10.2 9.0-12.2 fL Immature Granulocyte % (Auto) 0 % Neutrophils (%) (Auto) 63 42-75 % Lymphocytes (%) (Auto) 29 12-44 % Monocytes (%) (Auto) 6 0-12 % Eosinophils (%) (Auto) 2 0-10 % Basophils (%) (Auto) 0 0-10 % Neutrophils # (Auto) 5.6 1.8-7.8 10^3/uL Lymphocytes # (Auto) 2.6 1.0-4.0 10^3/uL Monocytes # (Auto) 0.5 0.0-1.0 10^3/uL Eosinophils # (Auto) 0.1 0.0-0.3 10^3/uL Basophils # (Auto) 0.0 0.0-0.1 10^3/uL Immature Granulocyte # (Auto) 0.0 0.0-0.1 10^3/uL Sodium Level 137 135-145 MMOL/L Potassium Level 4.1 3.6-5.0 MMOL/L Chloride Level 106 98-107 MMOL/L Carbon Dioxide Level 24 21-32 MMOL/L Anion Gap 7 5-14 MMOL/L Blood Urea Nitrogen 8 7-18 MG/DL Creatinine 0.82 0.60-1.30 MG/DL Estimat Glomerular Filtration Rate 97 BUN/Creatinine Ratio 10 Glucose Level 118 H 70-105 MG/DL Calcium Level 9.2 8.5-10.1 MG/DL Serum Test, Qualitative NEGATIVE NEGATIVE My Orders Orders - TRE MENDOZA MD Ed Iv/Invasive Line Start (01/23/23 09:26) Cbc With Automated Diff (01/23/23 09:26) Basic Metabolic Panel (01/23/23 09:26) Us Venous Lower Ext Lt (01/23/23 09:26) Hcg,Qualitative Serum (01/23/23 09:26) Vital Signs/I&O 01/23/23 09:01 Temp 35.7 Pulse 81 Resp 20 B/P (MAP) 163/96 (118) O2 Delivery Room Air Blood Pressure Mean: 118 Progress Progress Note : Time: 10:38 Progress Note Patient seen and evaluated by me. Evaluation today includes physical exam, review of prior ED visits, CBC, basic metabolic panel, ultrasound of the left lower extremity to rule out venous clot. Pertinent physical exam findings well- developed well-nourished obese female in no acute distress. Afebrile, not tachycardic not hypotensive. Mentating normally. Heart is regular, lungs demonstrate expiratory wheezes bilaterally. No increased work of breathing or respiratory distress. The patient is not hypoxic. Left lower extremity demonstrates 2-3+ edema, diffuse cellulitic erythematous bladder changer the left lower leg extending into the distal thigh. She does have a little swelling in the ankle none in the foot. Distal pulses are intact. No open draining wounds. No calf tenderness, negative Homans' sign. Differential diagnosis based on history and physical exam, cellulitis, DVT. Labs independently reviewed and interpreted by me, CBC is normal, basic metabolic panel is normal, renal function looks good and blood sugar is 118. Her DVT study of the left lower extremity is negative for venous thromboembolism. Patient is recommended to elevate the left leg to reduce swelling. I am starting her on Keflex 4 times daily and 500 mg for 10 days. Close follow-up with her primary care physician. Return precautions provided in both verbal and written format. All questions are sought and answered. Patient is comfortable with the plan of care. Ready for discharge Departure Impression Primary Impression: Cellulitis of leg without foot, left Disposition: 01 HOME, SELF-CARE Condition: Stable Departure-Patient Inst. Decision time for Depature: 10:32 Referrals: BEAR KINSEY DO (PCP/Family) Primary Care Physician Patient Instructions: Cellulitis (Skin Infection), Adult ED Add. Discharge Instructions: Monitor your leg swelling and redness to make sure it isn't draining getting worse after 1-2 days on antibiotics. It will take 1-2 days to start to see significant improvement. Elevate the left leg to help bring down the swelling. Take the antibiotics as prescribed and be sure to complete the entire 10 day course. Ibuprofen and Tylenol can be added to your Suboxone for pain control. If you develop a fever over 101 or any other emergent, concerning symptoms - please return to the Emergency Department for re-evaluation. Scripts Cephalexin (Cephalexin) 500 Mg Tablet 500 MG PO QID for 10 Days, #40 TAB Prov: TRE MENDOZA MD 01/23/23 Work/School Note: Work Release Form Date Seen in the Emergency Department: Jan 23, 2023 Return to Work: Jan 25, 2023 Copy Copies To 1: BEAR KINSEY KATHRYN M MD Jan 23, 2023 09:32
[2023-01-23 09:45] LABS: BASOPHILS % (AUTO) 0 % (0-10); EOSINOPHILS # (AUTO) 0.1 10^3/uL (0.0-0.3); EOSINOPHILS % (AUTO) 2 % (0-10); HEMATOCRIT 42 % (35-52); HEMOGLOBIN 13.8 g/dL (11.5-16.0); LYMPHOCYTES # (AUTO) 2.6 10^3/uL (1.0-4.0); LYMPHOCYTES % (AUTO) 29 % (12-44); MEAN CORPUSCULAR HEMOGLOBIN 30 pg (25-34); MEAN CORPUSCULAR HGB CONC 33 g/dL (32-36); MEAN CORPUSCULAR VOLUME 91 fL (80-99); MEAN PLATELET VOLUME 10.2 fL (9.0-12.2); MONOCYTES # (AUTO) 0.5 10^3/uL (0.0-1.0); MONOCYTES % (AUTO) 6 % (0-12); NEUTROPHILS # (AUTO) 5.6 10^3/uL (1.8-7.8); NEUTROPHILS % (AUTO) 63 % (42-75); PLATELET COUNT 278 10^3/uL (130-400); WHITE BLOOD COUNT 8.9 10^3/uL (4.3-11.0)
[2023-01-23 10:07] LABS: CALCIUM 9.2 MG/DL (8.5-10.1); CREATININE SERUM 0.82 MG/DL (0.60-1.30); POTASSIUM 4.1 MMOL/L (3.6-5.0)
[2023-01-23] MEDS ORDERED: CEPH500T PO (10:37)
--- NOTE | 2023-01-23 10:40 | Diagnostic Imaging Report ---
PROCEDURE: US left lower extremity venous. TECHNIQUE: Multiple Real-time grayscale images were obtained over the left lower extremity in various projections. Additional duplex Doppler and color Doppler images were also obtained. INDICATION: Left leg swelling and pain. FINDINGS: Continuous venous flow is present. No intraluminal filling defect is identified. There is normal compressibility and response to augmentation. No abnormal perivascular fluid collection is identified. IMPRESSION: No ultrasound evidence of left lower extremity deep venous thrombosis. Dictated by: Dictated on workstation # [id number]
[2023-01-23 11:01] VITALS: BP 127/84
== END 2023-01-23 11:00 | disposition home or self-care (01) ==
LOC: EDUNIT# 08:53 → ER 08:55
DX: L03.116 Cellulitis of left lower limb (principal); F17.210 Nicotine dependence, cigarettes, uncomplicated; E78.00 Pure hypercholesterolemia, unspecified; I10 Essential (primary) hypertension; Z79.899 Other long term (current) drug therapy; Z79.01 Long term (current) use of anticoagulants
CPT/HCPCS: 36415; 80048; 84703; 85025